=== PATIENT | female | born 1995 | race Caucasian/White ===

== ENCOUNTER 2018-10-20 15:08 | Inpatient (IN) | payer MEDICAID ==
[2018-10-20] MEDS ORDERED: TERBUTALINE 1 ML (15:44)
[2018-10-20 16:02] LABS: ADD MAN DIFF? NO
[2018-10-20 16:03] LABS: WHITE BLOOD COUNT 7.6 10^3/ul (4.8-10.8)
[2018-10-20 16:03] LABS: BASOPHILS % 0.5 % (0.0-2.0); EOSINOPHILS # 0.1 10^3/ul (0.0-0.5); EOSINOPHILS % 0.8 % (0.0-7.0); HEMATOCRIT 34.3 % (37.0-47.0); HEMOGLOBIN 11.1 g/dl (12.0-16.0); LYMPHOCYTES # 1.8 10^3/ul (0.8-2.9); LYMPHOCYTES % 23.8 % (15.0-51.0); MEAN CORPUSCULAR HEMOGLOBIN 29.1 pg (29.0-33.0); MEAN CORPUSCULAR HGB CONC 32.4 g/dl (32.0-37.0); MEAN PLATELET VOLUME 11.5 fl (7.4-10.4); MONOCYTE # 0.4 10^3/ul (0.3-0.9); MONOCYTES % 5.1 % (0.0-11.0); NEUTROPHIL # 5.3 10^3/ul (1.6-7.5); NEUTROPHILS % 69.1 % (39.0-77.0); PLATELET COUNT 163 10^3/UL (140-415); RED BLOOD COUNT 3.81 10^6/ul (4.20-5.40)
[2018-10-20] MEDS: LACTATED RINGER'S 1,000 ML IV ×2 (16:03→21:40)
[2018-10-20] MEDS: TERBUTALINE 1 MG/ML INJ SC ×2 (16:03→17:18)
[2018-10-20 16:11] LABS: ADD UMIC YES; UR ASCORBIC ACID 40 mg/dL (NEGATIVE); UR BILIRUBIN (Dip) NEGATIVE (NEGATIVE); UR BLOOD (Dip) NEGATIVE (NEGATIVE); UR CLARITY SLIGHTLY CLOUDY (CLEAR); UR COLOR YELLOW (YELLOW); UR GLUCOSE (Dip) NEGATIVE (NEGATIVE); UR KETONES (Dip) 1+ mg/dL (NEGATIVE); UR LEUKOCYTE ESTERASE (Dip) TRACE Leu/ul (NEGATIVE); UR MUCUS MODERATE /HPF (NONE SEEN); UR NITRITE (Dip) NEGATIVE (NEGATIVE); UR RBC 0 /HPF (0-5); UR SPECIFIC GRAVITY (Dip) 1.023 (1.003-1.030); UR SQUAMOUS EPITHELIAL CELL FEW /HPF (FEW); UR TOTAL PROTEIN (Dip) NEGATIVE (NEGATIVE); UR UROBILINOGEN (Dip) NEGATIVE (NEGATIVE); UR WBC 3 /HPF (0-5)
[2018-10-20] MEDS ORDERED: LACTATED RINGER'S 1,000 ML IV (18:44)
[2018-10-20] MEDS ORDERED: BETAMET NA PHOS/AC(6 MG/ML) 2 ML INJ SYG IM (19:00)
[2018-10-20] MEDS ORDERED: DEXAMETHASONE 4 MG/ML 5 ML INJ IM (19:00)
[2018-10-20] MEDS: NIFEdipine 10 MG CAP PO (19:04)
[2018-10-20] MEDS ORDERED: AL HYDROX/MG HYDROX/SIMETH 30 ML CUP PO (19:30)
[2018-10-20] MEDS ORDERED: ACETAMINOPHEN 325 MG TAB PO (19:30)
[2018-10-20] MEDS: DEXAMETHASONE 4 MG/ML 5 ML INJ IM (23:02)
[2018-10-21] MEDS: NIFEdipine 10 MG CAP PO ×5 (00:46→23:29)
[2018-10-21] MEDS: LACTATED RINGER'S 1,000 ML IV ×3 (05:44→22:59)
[2018-10-21] MEDS: FERROUS SULFATE (EC) 325 MG TAB PO (10:35)
[2018-10-21] MEDS: PRENATAL VITAMIN PO (10:35)
[2018-10-21] MEDS: DEXAMETHASONE 4 MG/ML 5 ML INJ IM ×2 (11:29→23:01)
[2018-10-21] MEDS ORDERED: BETAMET NA PHOS/AC(6 MG/ML) 2 ML INJ SYG IM (19:00)
[2018-10-22] MEDS: NIFEdipine 10 MG CAP PO ×2 (05:36→11:23)
[2018-10-22] MEDS: LACTATED RINGER'S 1,000 ML IV (07:16)
[2018-10-22] MEDS: PRENATAL VITAMIN PO (08:37)
[2018-10-22] MEDS: FERROUS SULFATE (EC) 325 MG TAB PO (08:37)
[2018-10-22] MEDS: DEXAMETHASONE 4 MG/ML 5 ML INJ IM (11:45)
== END 2018-10-22 16:20 | disposition home or self-care (01) | DRG 833 ==
LOC: OBT 15:08 → L-D 15:09 → OBT 18:40 → L-D 18:40 → PP1 21:18
PROVIDERS: Obstetrics & Gynecology
PROC: 4A1HXCZ Monitoring of Products of Conception, Cardiac Rate, External Approach (ICD-10-PCS; principal; 2018-10-20)
DX: O60.03 Preterm labor without delivery, third trimester (principal); Z3A.34 34 weeks gestation of pregnancy
CPT/HCPCS: 76818; 81001; 85025; 87086; 96360; 96361; 96372

== ENCOUNTER 2018-10-28 23:40 | Outpatient (CLI) | payer MEDICAID ==
[2018-10-29 00:13] LABS: ADD UMIC YES; UR ASCORBIC ACID NEGATIVE (NEGATIVE); UR BACTERIA FEW /HPF (NONE SEEN); UR BILIRUBIN (Dip) NEGATIVE (NEGATIVE); UR BLOOD (Dip) NEGATIVE (NEGATIVE); UR CLARITY SLIGHTLY CLOUDY (CLEAR); UR COLOR YELLOW (YELLOW); UR GLUCOSE (Dip) NEGATIVE (NEGATIVE); UR KETONES (Dip) NEGATIVE (NEGATIVE); UR LEUKOCYTE ESTERASE (Dip) 1+ Leu/ul (NEGATIVE); UR MUCUS FEW /HPF (NONE SEEN); UR NITRITE (Dip) NEGATIVE (NEGATIVE); UR RBC 1 /HPF (0-5); UR SPECIFIC GRAVITY (Dip) 1.015 (1.003-1.030); UR SQUAMOUS EPITHELIAL CELL FEW /HPF (FEW); UR TOTAL PROTEIN (Dip) NEGATIVE (NEGATIVE); UR UROBILINOGEN (Dip) NEGATIVE (NEGATIVE); UR WBC 2 /HPF (0-5)
[2018-10-29] MEDS: LACTATED RINGER'S 1,000 ML IV ×2 (01:06→03:36)
[2018-10-29] MEDS: TERBUTALINE 1 MG/ML INJ SC (01:06)
[2018-10-29 01:49] LABS: ADD MAN DIFF? NO
[2018-10-29 01:51] LABS: WHITE BLOOD COUNT 8.1 10^3/ul (4.8-10.8)
[2018-10-29 01:51] LABS: BASOPHIL # 0.1 10^3/ul (0.0-0.1); BASOPHILS % 0.6 % (0.0-2.0); EOSINOPHILS # 0.1 10^3/ul (0.0-0.5); EOSINOPHILS % 1.7 % (0.0-7.0); HEMATOCRIT 34.1 % (37.0-47.0); HEMOGLOBIN 11.3 g/dl (12.0-16.0); LYMPHOCYTES # 2.3 10^3/ul (0.8-2.9); LYMPHOCYTES % 28.3 % (15.0-51.0); MEAN CORPUSCULAR HEMOGLOBIN 29.7 pg (29.0-33.0); MEAN CORPUSCULAR HGB CONC 33.1 g/dl (32.0-37.0); MEAN CORPUSCULAR VOLUME 89.5 fl (82.0-101.0); MEAN PLATELET VOLUME 11.5 fl (7.4-10.4); MONOCYTE # 0.5 10^3/ul (0.3-0.9); MONOCYTES % 5.8 % (0.0-11.0); NEUTROPHIL # 5.1 10^3/ul (1.6-7.5); NEUTROPHILS % 62.9 % (39.0-77.0); PLATELET COUNT 179 10^3/UL (140-415); RED BLOOD COUNT 3.81 10^6/ul (4.20-5.40); RED CELL DISTRIBUTION WIDTH 12.5 % (11.5-14.5)
== END 2018-10-29 05:02 | disposition home or self-care (01) ==
LOC: OBT 23:40 → L-D 23:43 → OBT 10-29 05:02
DX: O47.03 False labor before 37 completed weeks of gestation, third trimester (principal); Z3A.35 35 weeks gestation of pregnancy; O26.893 Other specified pregnancy related conditions, third trimester; R82.90 Unspecified abnormal findings in urine
CPT/HCPCS: 36415; 76818; 81001; 85025; 87086; 96360; 96361; 96372

== ENCOUNTER 2018-11-08 11:11 | Outpatient (CLI) | payer MEDICAID | END 2018-11-08 13:40 | disposition home or self-care (01) | LOC: OBT 11:11 → L-D 11:11 → OBT 13:40 | DX: O62.9 Abnormality of forces of labor, unspecified (principal); Z3A.36 36 weeks gestation of pregnancy | CPT/HCPCS: 76818 ==

== ENCOUNTER 2018-11-12 05:11 | Inpatient (IN) | payer MEDICAID ==
[2018-11-12 06:34] LABS: RUPTURE FETAL MEMBRANES NEGATIVE (NEGATIVE)
[2018-11-12] MEDS ORDERED: OXYTOCIN 30 UNITS/LR 500 ML IV ×2 (07:00→13:00)
[2018-11-12] MEDS ORDERED: METHYLERGONOVINE 0.2 MG INJ IM ×2 (07:00→13:00)
[2018-11-12] MEDS ORDERED: LIDOCAINE 1% (MPF) 30 ML INJ INJ (07:00)
[2018-11-12] MEDS ORDERED: IBUPROFEN 600 MG TAB PO (07:00)
[2018-11-12] MEDS ORDERED: BUTORPHANOL 2 MG INJ IV (07:00)
[2018-11-12] MEDS ORDERED: MINERAL OIL LIGHT 10 ML VIAL TOP (07:00)
[2018-11-12] MEDS ORDERED: CARBOPROST 250 MCG INJ IM ×2 (07:00→13:00)
[2018-11-12] MEDS ORDERED: MISOPROSTOL 200 MCG TAB PR ×2 (07:00→13:00)
[2018-11-12 07:50] LABS: ADD MAN DIFF? NO
[2018-11-12 07:51] LABS: BASOPHILS % 0.5 % (0.0-2.0); EOSINOPHILS # 0.1 10^3/ul (0.0-0.5); EOSINOPHILS % 1.1 % (0.0-7.0); HEMATOCRIT 37.2 % (37.0-47.0); HEMOGLOBIN 12.3 g/dl (12.0-16.0); LYMPHOCYTES # 2.1 10^3/ul (0.8-2.9); LYMPHOCYTES % 25.2 % (15.0-51.0); MEAN CORPUSCULAR HEMOGLOBIN 29.1 pg (29.0-33.0); MEAN CORPUSCULAR HGB CONC 33.1 g/dl (32.0-37.0); MEAN CORPUSCULAR VOLUME 87.9 fl (82.0-101.0); MEAN PLATELET VOLUME 11.8 fl (7.4-10.4); MONOCYTE # 0.4 10^3/ul (0.3-0.9); MONOCYTES % 5.2 % (0.0-11.0); NEUTROPHIL # 5.6 10^3/ul (1.6-7.5); NEUTROPHILS % 67.5 % (39.0-77.0); PLATELET COUNT 172 10^3/UL (140-415); RED BLOOD COUNT 4.23 10^6/ul (4.20-5.40); RED CELL DISTRIBUTION WIDTH 12.9 % (11.5-14.5)
[2018-11-12 07:51] LABS: WHITE BLOOD COUNT 8.3 10^3/ul (4.8-10.8)
[2018-11-12 07:55] LABS: ADD UMIC YES; UR ASCORBIC ACID NEGATIVE (NEGATIVE); UR BACTERIA FEW /HPF (NONE SEEN); UR BILIRUBIN (Dip) NEGATIVE (NEGATIVE); UR BLOOD (Dip) NEGATIVE (NEGATIVE); UR CLARITY CLEAR (CLEAR); UR COLOR YELLOW (YELLOW); UR GLUCOSE (Dip) NEGATIVE (NEGATIVE); UR KETONES (Dip) NEGATIVE (NEGATIVE); UR LEUKOCYTE ESTERASE (Dip) TRACE Leu/ul (NEGATIVE); UR NITRITE (Dip) NEGATIVE (NEGATIVE); UR RBC 1 /HPF (0-5); UR SPECIFIC GRAVITY (Dip) 1.019 (1.003-1.030); UR SQUAMOUS EPITHELIAL CELL FEW /HPF (FEW); UR TOTAL PROTEIN (Dip) NEGATIVE (NEGATIVE); UR UROBILINOGEN (Dip) NEGATIVE (NEGATIVE); UR WBC 1 /HPF (0-5)
[2018-11-12] MEDS ORDERED: FENTAnyl 2MCG/ML-ROPIV 0.2% 100 ML BAG EPI (08:00)
[2018-11-12] MEDS ORDERED: NALOXONE (0.4 MG/ML) INJ IV (08:00)
[2018-11-12 08:10] LABS: INR 0.88; PT RATIO 0.9
[2018-11-12 08:11] LABS: PARTIAL THROMBOPLASTIN TIME 28.8 Sec (23.0-35.0)
[2018-11-12] MEDS: AMPICILLIN 2 GM/NS (PMX) 100 ML IV (08:33)
[2018-11-12] MEDS: LACTATED RINGER'S 1,000 ML IV ×2 (08:33→08:56)
[2018-11-12 08:43] LABS: HEPATITIS B SURFACE ANTIGEN NEGATIVE (NEGATIVE)
[2018-11-12] MEDS: OXYTOCIN 30 UNITS/LR 500 ML IV ×3 (10:37→12:09)
[2018-11-12] MEDS ORDERED: AMPICILLIN 1 GM/NS (PMX) 50 ML IV (11:00)
[2018-11-12] MEDS: KETOROLAC 30 MG INJ IV (11:26)
[2018-11-12] MEDS: IBUPROFEN 600 MG TAB PO ×2 (13:00→17:38)
[2018-11-12] MEDS ORDERED: HYDROCODONE/APAP (5/325) TAB PO ×2 (13:00)
[2018-11-12] MEDS ORDERED: DIBUCAINE 1% 30 GM OINT TOP (13:00)
[2018-11-12] MEDS ORDERED: ZOLPIDEM 5 MG TAB PO (13:00)
[2018-11-12] MEDS: CEPHALEXIN 500 MG CAP PO ×2 (13:38→17:37)
[2018-11-12] MEDS: WITCH HAZEL/GLYCERIN PAD PR (13:39)
[2018-11-12] MEDS: BENZOCAINE 20% 56 ML SPRAY TOP (13:39)
[2018-11-12] MEDS: LANOLIN HPA 1 PKT TOP ×2 (13:39→21:29)
[2018-11-12] MEDS: LACTATED RINGER'S 1,000 ML IV* ×2 (17:00→19:49)
[2018-11-12 17:21] LABS: RAPID PLASMA REAGIN NONREACTIVE (NR)
[2018-11-12] MEDS: MAGNESIUM HYDROXIDE 30ML CUP PO (21:29)
[2018-11-12] MEDS: SENNA/DOCUSATE NA (8.6MG/50MG) TAB PO (21:29)
[2018-11-13] MEDS: CEPHALEXIN 500 MG CAP PO ×5 (00:15→23:48)
[2018-11-13] MEDS: IBUPROFEN 600 MG TAB PO ×5 (00:17→23:48)
[2018-11-13] MEDS: LACTATED RINGER'S 1,000 ML IV* (04:53)
[2018-11-13 08:42] LABS: ADD MAN DIFF? NO
[2018-11-13 08:47] LABS: BASOPHILS % 0.4 % (0.0-2.0); EOSINOPHILS # 0.1 10^3/ul (0.0-0.5); EOSINOPHILS % 1.5 % (0.0-7.0); HEMATOCRIT 30.5 % (37.0-47.0); HEMOGLOBIN 9.9 g/dl (12.0-16.0); LYMPHOCYTES # 1.8 10^3/ul (0.8-2.9); LYMPHOCYTES % 26.1 % (15.0-51.0); MEAN CORPUSCULAR HEMOGLOBIN 29.3 pg (29.0-33.0); MEAN CORPUSCULAR HGB CONC 32.5 g/dl (32.0-37.0); MEAN CORPUSCULAR VOLUME 90.2 fl (82.0-101.0); MEAN PLATELET VOLUME 11.9 fl (7.4-10.4); MONOCYTE # 0.3 10^3/ul (0.3-0.9); NEUTROPHIL # 4.6 10^3/ul (1.6-7.5); NEUTROPHILS % 66.6 % (39.0-77.0); PLATELET COUNT 145 10^3/UL (140-415); RED BLOOD COUNT 3.38 10^6/ul (4.20-5.40); RED CELL DISTRIBUTION WIDTH 13.2 % (11.5-14.5)
[2018-11-13 08:47] LABS: WHITE BLOOD COUNT 6.8 10^3/ul (4.8-10.8)
[2018-11-13] MEDS: SENNA/DOCUSATE NA (8.6MG/50MG) TAB PO ×2 (09:55→21:33)
[2018-11-13] MEDS: MAGNESIUM HYDROXIDE 30ML CUP PO ×2 (09:55→21:33)
[2018-11-13] MEDS: LANOLIN HPA 1 PKT TOP (11:49)
[2018-11-14] MEDS: CEPHALEXIN 500 MG CAP PO ×2 (06:39→12:37)
[2018-11-14] MEDS: IBUPROFEN 600 MG TAB PO ×2 (06:39→12:37)
[2018-11-14] MEDS: DIPHTH/TET/ACEL PERTUSS (ADULT) 0.5 ML VIAL IM* (08:50)
[2018-11-14] MEDS: VARICELLA VACCINE LIVE/PF 1,350 UNIT/0.5 ML ML SC* (08:51)
[2018-11-14] MEDS: MEASLES,MUMPS,RUBELLA VACCINE INJ SC* (08:51)
[2018-11-14] MEDS: MAGNESIUM HYDROXIDE 30ML CUP PO (09:04)
[2018-11-14] MEDS: SENNA/DOCUSATE NA (8.6MG/50MG) TAB PO (09:04)
== END 2018-11-14 15:06 | disposition home or self-care (01) | DRG 807 ==
LOC: OBT 05:11 → L-D 05:12 → OBT 06:40 → L-D 06:40 → PP1 12:57
PROVIDERS: Obstetrics & Gynecology
PROC: 10E0XZZ Delivery of Products of Conception, External Approach (ICD-10-PCS; principal; 2018-11-12)
DX: O80 Encounter for full-term uncomplicated delivery (principal); Z37.0 Single live birth; Z3A.37 37 weeks gestation of pregnancy
CPT/HCPCS: 62319; 81001; 84112; 85025; 85610; 85730; 86592; 86850; 86900; 86901; 87086; 87340; 90716

== ENCOUNTER 2018-12-27 12:50 | Emergency (ER) | payer MEDICAID ==
[2018-12-27] MEDS: ONDANSETRON (ODT) 4 MG TAB ODT (13:55)
[2018-12-27] MEDS: HYDROCODONE/APAP (5/325) TAB PO (13:56)
[2018-12-27 13:59] LABS: ADD MAN DIFF? NO
[2018-12-27 14:02] LABS: WHITE BLOOD COUNT 9.2 10^3/ul (4.8-10.8)
[2018-12-27 14:02] LABS: BASOPHILS % 0.3 % (0.0-2.0); EOSINOPHILS % 0.4 % (0.0-7.0); HEMATOCRIT 43.6 % (37.0-47.0); HEMOGLOBIN 14.1 g/dl (12.0-16.0); LYMPHOCYTES # 1.9 10^3/ul (0.8-2.9); LYMPHOCYTES % 20.2 % (15.0-51.0); MEAN CORPUSCULAR HGB CONC 32.3 g/dl (32.0-37.0); MEAN CORPUSCULAR VOLUME 89.5 fl (82.0-101.0); MEAN PLATELET VOLUME 12.4 fl (7.4-10.4); MONOCYTE # 0.4 10^3/ul (0.3-0.9); MONOCYTES % 4.2 % (0.0-11.0); NEUTROPHIL # 6.9 10^3/ul (1.6-7.5); NEUTROPHILS % 74.7 % (39.0-77.0); PLATELET COUNT 180 10^3/UL (140-415); RED BLOOD COUNT 4.87 10^6/ul (4.20-5.40); RED CELL DISTRIBUTION WIDTH 12.7 % (11.5-14.5)
[2018-12-27 14:20] LABS: ALANINE AMINOTRANSFERASE 29 IU/L (13-69); ALBUMIN/GLOBULIN RATIO 1.42; ALKALINE PHOSPHATASE 91 IU/L (42-121); ANION GAP 14 (5-13); ASPARTATE AMINO TRANSFERASE 28 IU/L (15-46); BILIRUBIN,INDIRECT 1.5 mg/dl (0-1.1); BILIRUBIN,TOTAL 1.5 mg/dl (0.2-1.3); BLOOD UREA NITROGEN 11 mg/dl (7-20); CALCIUM 9.8 mg/dl (8.4-10.2); CARBON DIOXIDE 26 mmol/L (21-31); CHLORIDE 104 mmol/L (97-110); CREATININE 0.66 mg/dl (0.44-1.00); Estimated GFR > 60 mL/min (>60); GLUCOSE 96 mg/dl (70-220); LIPASE 116 U/L (23-300); POTASSIUM 4.3 mmol/L (3.5-5.1); SODIUM 144 mmol/L (135-144); TOTAL PROTEIN 8.5 g/dl (6.1-8.1)
[2018-12-27 14:25] LABS: ADD UMIC NO; UR ASCORBIC ACID NEGATIVE (NEGATIVE); UR BACTERIA FEW /HPF (NONE SEEN); UR BILIRUBIN (Dip) NEGATIVE (NEGATIVE); UR BLOOD (Dip) NEGATIVE (NEGATIVE); UR CLARITY SLIGHTLY CLOUDY (CLEAR); UR COLOR YELLOW (YELLOW); UR GLUCOSE (Dip) NEGATIVE (NEGATIVE); UR KETONES (Dip) 2+ mg/dL (NEGATIVE); UR LEUKOCYTE ESTERASE (Dip) NEGATIVE Leu/ul (NEGATIVE); UR MUCUS MANY /HPF (NONE SEEN); UR NITRITE (Dip) NEGATIVE (NEGATIVE); UR RBC 0 /HPF (0-5); UR SPECIFIC GRAVITY (Dip) 1.025 (1.003-1.030); UR SQUAMOUS EPITHELIAL CELL FEW /HPF (FEW); UR TOTAL PROTEIN (Dip) NEGATIVE (NEGATIVE); UR UROBILINOGEN (Dip) NEGATIVE (NEGATIVE); UR WBC 5 /HPF (0-5)
== END 2018-12-27 15:43 | disposition home or self-care (01) ==
LOC: FTE 12:50
DX: K80.20 Calculus of gallbladder without cholecystitis without obstruction (principal)
CPT/HCPCS: 36415; 76705; 76830; 76856; 80053; 81001; 81003; 81025; 83690; 85025; 99284-25